=== PATIENT | male | born 1980 | race Hispanic/Latino ===

== ENCOUNTER 2020-11-21 19:41 | Emergency (ER) | payer OTHER ==
[~2020-11-21] VITALS: Ht 172.7 cm; Wt 84.8 kg
[2020-11-21] MEDS ORDERED: AUGMENTIN 875-1 EACH PO (19:53)
[2020-11-21] MEDS ORDERED: ACETAMINOPHEN500 MG PO (19:53)
[2020-11-21] MEDS ORDERED: BACITRACIN ZINC 0.9GM TP ONE (20:00)
[2020-11-21] MEDS ORDERED: LIDOCAINE HCL 2% LOCAL 20 ML VIAL ONE (20:00)
[2020-11-21 20:21] VITALS: BP 142/87
== END 2020-11-21 20:21 | disposition home or self-care (01) ==
LOC: FSED 19:46
DX: S01.121A Laceration with foreign body of right eyelid and periocular area, initial encounter (principal); W26.8XXA Contact with other sharp object(s), not elsewhere classified, initial encounter; Y92.828 Other wilderness area as the place of occurrence of the external cause
CPT/HCPCS: 99283; J2001